=== PATIENT | male | born 1940 | race Caucasian/White ===

== ENCOUNTER 2021-11-09 08:07 | Day surgery (SDC) | payer MEDICARE ==
[2021-11-05 15:12] VITALS: BMI 24.8
[~2021-11-09 08:07] MED LIST: EPINEPHrine 0.3 MG in Ophthalmic Irrigation Solution 500 ML IRR SCH; Midazolam HCl 2 mg/2 ml Vial ONE; fentaNYL Citrate/PF 100 MCG/2 ML SYRINGE ONE
[2021-11-09] MEDS ORDERED: Phenylephrine 2.5% Ophth Soln 5 ML BOT ONE (08:55)
[2021-11-09] MEDS ORDERED: Cyclopentolate 1% Opth Drop 2 ML BOT ONE (08:55)
[2021-11-09] MEDS ORDERED: PROPOFOL 200 MG/20 ML VIAL ONE (09:52)
[2021-11-09] MEDS ORDERED: Bupivacaine 0.75% 10 ML VIAL ONE (09:52)
[2021-11-09] MEDS ORDERED: Lidocaine 4% PF 5 ML AMP ONE (09:52)
[2021-11-09] MEDS ORDERED: Triamcinolone 40 MG/ML VIAL ONE (09:52)
[2021-11-09] MEDS ORDERED: Lidocaine 1% PF 5 ML VIAL ONE (09:52)
[2021-11-09] MEDS ORDERED: Maxitrol 0.1% Opth Oint 3.5 GM TUBE ONE (09:52)
[2021-11-09] MEDS ORDERED: Indocyanine Green 25 MG/10 ML VIAL ONE (09:52)
[2021-11-09] MEDS ORDERED: CEFAZOLIN 1 GM VIAL ONE (09:52)
== END 2021-11-09 11:15 | disposition home or self-care (01) ==
LOC: SDC 08:07
PROVIDERS: ATTEND Ophthalmology Retina Specialist
PROC: 08T43ZZ Resection of Right Vitreous, Percutaneous Approach (ICD-10-PCS; principal; 2021-11-09)
PROC: 08NE3ZZ Release Right Retina, Percutaneous Approach (ICD-10-PCS; 2021-11-09)
DX: H43.821 Vitreomacular adhesion, right eye (principal); H43.311 Vitreous membranes and strands, right eye; Z79.899 Other long term (current) drug therapy; Z98.41 Cataract extraction status, right eye; Z98.42 Cataract extraction status, left eye; Z96.1 Presence of intraocular lens
CPT/HCPCS: J0171; J0690; J2250; J2704; J3301; J3490